=== PATIENT | female | born 1985 | race Caucasian/White ===

== ENCOUNTER 2017-01-01 21:19 | Emergency (ER) | payer OTHER ==
[~2017-01-01] VITALS: Ht 165.1 cm; Wt 107.0 kg
[~2017-01-01 21:19] MED LIST: BACTRIM,SEPT1 TABLET PO; BENTYL10 MG PO; CLINDAMYCIN HC300 MG PO; CLONAZEPAM0.5 MG PO; CYMBALTA60 MG PO; DEXILANT60 MG PO; ESOMEPRAZOLE MA40 MG PO; EXTRA STRENGTH500 M1 PO; FLEXERIL10 MG PO; FLONASE16 G1 BOTH NARES; INDERAL40 MG PO; IRON55 MG PO; KLONOPIN0.5 M1 PO; METAXALONE800 MG PO; MICROGESTIN FE1 EACH PO; MUCINEX1200 MG PO; MUCUS ER600 MG PO; NAPROSYN-EC500 MG PO; NAPROSYN500 MG PO; OVCON-351 TAB PO; PERCOCET 5/31 TABLET PO; PREDNISONE50 MG PO; PRILOSEC40 MG PO; PROBIOTIC1 EAC1 PO; PROPRANOLOL HCL40 MG PO; REGLAN10 MG PO; VALIUM2 MG PO; VALIUM5 MG PO; ZOFRAN ODT4 MG PO; ZOFRAN ODT8 MG PO; ZOLOFT50 MG PO
[2017-01-01 22:58] LABS: HEMATOCRIT 40.1 % (36.0-46.0); MCH 29.6 PG (29.0-34.0); MCHC 33.2 G/DL (30.0-36.0); MCV 89.1 FL (83-99); MEAN PLAT.VOLUME 9.3 uM^3 (9.5-12.4); PLATELET COUNT 293 K/uL (156-360); RBC DIS.WIDTH-CV 12.7 % (11.8-14.6); RBC DIS.WIDTH-SD 41.7 % (39-53); WHITE BLOOD COUNT 7.9 K/uL (4.1-10.2)
[2017-01-01 23:09] LABS: CHLORIDE 106 mEq/L (99-109); SODIUM 139 mEq/L (136-147)
[2017-01-01 23:11] LABS: GLUCOSE 142 mg/dL (70-99)
[2017-01-01 23:13] LABS: ANION GAP 12 MEQ/L (2-14)
[2017-01-01 23:15] LABS: GFR ESTIMATE (CALCULATED) > 59 mL/min/
[2017-01-01 23:16] LABS: UREA NITROGEN (BUN) 10 mg/dL (9-23)
[2017-01-01 23:23] LABS: QUANTITATIVE HCG < 4.0 MIU/ML
[2017-01-02 01:41] VITALS: BP 139/94
== END 2017-01-02 01:42 | disposition home or self-care (01) ==
LOC: EME 21:19
PROVIDERS: Emergency Medicine
DX: R20.2 Paresthesia of skin (principal); F41.9 Anxiety disorder, unspecified; Z88.1 Allergy status to other antibiotic agents
CPT/HCPCS: 70450; 80048; 84702; 85027; 99281; 99284

== ENCOUNTER 2017-01-30 14:19 | Emergency (ER) | payer OTHER ==
[~2017-01-30] VITALS: Ht 165.1 cm; Wt 105.6 kg
[2017-01-30 16:11] VITALS: BP 132/75
== END 2017-01-30 16:11 | disposition home or self-care (01) ==
LOC: EME 14:19
DX: G43.909 Migraine, unspecified, not intractable, without status migrainosus (principal); Z88.0 Allergy status to penicillin; Z88.8 Allergy status to other drugs, medicaments and biological substances; Z86.69 Personal history of other diseases of the nervous system and sense organs; Z86.79 Personal history of other diseases of the circulatory system
CPT/HCPCS: 99281; 99284; J1200; J1885; J2765; J7030

== ENCOUNTER 2017-01-31 11:41 | Emergency (ER) | payer OTHER ==
[~2017-01-31] VITALS: Ht 165.1 cm; Wt 114.4 kg
[2017-01-31 12:59] LABS: HEMATOCRIT 39.3 % (36.0-46.0); MCH 29.3 PG (29.0-34.0); MCHC 33.1 G/DL (30.0-36.0); MCV 88.7 FL (83-99); MEAN PLAT.VOLUME 9.3 uM^3 (9.5-12.4); PLATELET COUNT 268 K/uL (156-360); RBC DIS.WIDTH-CV 12.7 % (11.8-14.6); RBC DIS.WIDTH-SD 41.4 % (39-53); RED BLOOD COUNT 4.43 M/uL (3.80-5.20); WHITE BLOOD COUNT 4.5 K/uL (4.1-10.2)
[2017-01-31 13:07] LABS: D-DIMER ELISA 0.36 mg/L FEU (< 0.57)
[2017-01-31 13:18] LABS: CHLORIDE 109 mEq/L (99-109); POTASSIUM 3.7 mEq/L (3.7-5.4); SODIUM 143 mEq/L (136-147)
[2017-01-31 13:19] LABS: GLUCOSE 123 mg/dL (70-99)
[2017-01-31 13:21] LABS: ANION GAP 11 MEQ/L (2-14)
[2017-01-31 13:23] LABS: GFR ESTIMATE (CALCULATED) > 59 mL/min/
[2017-01-31 13:24] LABS: UREA NITROGEN (BUN) 6 mg/dL (9-23)
[2017-01-31 13:25] LABS: TROP-I INTERPRETATION NEGATIVE; TROPONIN-I < 0.01 ng/mL (0.0-0.30)
[2017-01-31 13:35] LABS: QUANTITATIVE HCG < 4.0 MIU/ML
[2017-01-31 14:22] VITALS: BP 131/96
== END 2017-01-31 14:48 | disposition home or self-care (01) ==
LOC: EME 11:41
PROVIDERS: Emergency Medicine
DX: R00.2 Palpitations (principal)
CPT/HCPCS: 71020; 80048; 83880; 84443; 84484; 84702; 85027; 85379; 93005; 99281; 99284; J2060

== ENCOUNTER 2017-03-27 17:03 | Emergency (ER) | payer OTHER ==
[~2017-03-27] VITALS: Ht 165.1 cm; Wt 112.0 kg
[2017-03-27 18:33] LABS: HEMATOCRIT 40.7 % (36.0-46.0); MCH 29.6 PG (29.0-34.0); MCHC 33.7 G/DL (30.0-36.0); MCV 87.9 FL (83-99); MEAN PLAT.VOLUME 9.2 uM^3 (9.5-12.4); PLATELET COUNT 306 K/uL (156-360); RBC DIS.WIDTH-CV 12.3 % (11.8-14.6); RBC DIS.WIDTH-SD 39.8 % (39-53); RED BLOOD COUNT 4.63 M/uL (3.80-5.20); WHITE BLOOD COUNT 7.8 K/uL (4.1-10.2)
[2017-03-27 18:43] LABS: D-DIMER ELISA < 150.00 ng/mLDDU (<230)
[2017-03-27 18:49] LABS: CHLORIDE 108 mEq/L (99-109); POTASSIUM 3.8 mEq/L (3.7-5.4); SODIUM 141 mEq/L (136-147)
[2017-03-27 18:51] LABS: GLUCOSE 91 mg/dL (70-99)
[2017-03-27 18:52] LABS: ANION GAP 10 MEQ/L (2-14)
[2017-03-27 18:54] LABS: TROP-I INTERPRETATION NEGATIVE; TROPONIN-I < 0.01 ng/mL (0.0-0.30)
[2017-03-27 18:55] LABS: GFR ESTIMATE (CALCULATED) > 59 mL/min/
[2017-03-27 18:56] LABS: UREA NITROGEN (BUN) 6 mg/dL (9-23)
[2017-03-27 18:57] LABS: CREATINE KINASE 93 IU/L (1-294)
[2017-03-27 19:05] LABS: QUANTITATIVE HCG < 4.0 MIU/ML
[2017-03-27 20:48] LABS: TROP-I INTERPRETATION NEGATIVE; TROPONIN-I < 0.01 ng/mL (0.0-0.30)
[2017-03-27] MEDS ORDERED: FLONASE16 G1 BOTH NARES (21:08)
[2017-03-27] MEDS ORDERED: MUCINEX1200 MG PO (21:08)
[2017-03-27] MEDS ORDERED: VALIUM2 MG PO (21:09)
[2017-03-27 21:27] VITALS: BP 111/72
== END 2017-03-27 21:27 | disposition home or self-care (01) ==
LOC: EME 17:03
PROVIDERS: Physician Assistant
DX: R07.89 Other chest pain (principal); R42 Dizziness and giddiness; H65.02 Acute serous otitis media, left ear
CPT/HCPCS: 71020; 80048; 82550; 84443; 84484; 84702; 85027; 85379; 93005; 99281; 99284

== ENCOUNTER 2017-04-09 22:20 | Emergency (ER) | payer OTHER ==
[~2017-04-09] VITALS: Ht 165.1 cm; Wt 106.3 kg
[2017-04-10 00:46] LABS: HEMATOCRIT 39.7 % (36.0-46.0); MCH 29.4 PG (29.0-34.0); MEAN PLAT.VOLUME 9.1 uM^3 (9.5-12.4); PLATELET COUNT 274 K/uL (156-360); RBC DIS.WIDTH-CV 12.7 % (11.8-14.6); RBC DIS.WIDTH-SD 41.3 % (39-53); RED BLOOD COUNT 4.46 M/uL (3.80-5.20); WHITE BLOOD COUNT 10.8 K/uL (4.1-10.2)
[2017-04-10 01:00] LABS: CHLORIDE 106 mEq/L (99-109); POTASSIUM 4.1 mEq/L (3.7-5.4); SODIUM 139 mEq/L (136-147)
[2017-04-10 01:01] LABS: MAGNESIUM 2.3 mg/dL (1.3-2.7)
[2017-04-10 01:02] LABS: GLUCOSE 112 mg/dL (70-99)
[2017-04-10 01:02] LABS: ADD MIUA? YES; BILIRUBIN NEGATIVE; BLOOD MODERATE; COLOR YELLOW ((YELLOW)); GLUCOSE (STRIP) NEGATIVE; KETONES NEGATIVE; LEUKOCYTES SMALL; NITRITE NEGATIVE; PROTEIN (STRIP) NEGATIVE; UROBILINOGEN 0.2 MG/DL (0.2-1.0)
[2017-04-10 01:03] LABS: ANION GAP 9 MEQ/L (2-14)
[2017-04-10 01:06] LABS: D-DIMER ELISA < 150.00 ng/mLDDU (<230); GFR ESTIMATE (CALCULATED) > 59 mL/min/
[2017-04-10 01:07] LABS: UREA NITROGEN (BUN) 7 mg/dL (9-23)
[2017-04-10 01:10] LABS: TROP-I INTERPRETATION NEGATIVE; TROPONIN-I < 0.01 ng/mL (0.0-0.30)
[2017-04-10 01:21] LABS: BACTERIA RARE /HPF; EPITHELIAL CELLS 1+ /HPF; MUCUS TRACE /LPF; RED BLOOD CELLS 0-5 /HPF (0-5); UCUL ADDED? NO; WHITE BLOOD CELLS 0-5 /HPF (0-5)
[2017-04-10 01:42] LABS: QUANTITATIVE HCG < 4.0 MIU/ML
[2017-04-10 02:45] VITALS: BP 136/80
== END 2017-04-10 02:46 | disposition home or self-care (01) ==
LOC: EME 22:20
PROVIDERS: Emergency Medicine
DX: R00.2 Palpitations (principal); F41.1 Generalized anxiety disorder; I47.1 Supraventricular tachycardia; I45.81 Long QT syndrome; Z88.0 Allergy status to penicillin; Z79.3 Long term (current) use of hormonal contraceptives
CPT/HCPCS: 71020; 80048; 81003; 83735; 84443; 84484; 84702; 85027; 85379; 93005; 99281; 99284

== ENCOUNTER 2017-04-15 09:22 | Emergency (ER) | payer OTHER ==
[~2017-04-15] VITALS: Ht 165.1 cm; Wt 102.9 kg
[2017-04-15 10:36] LABS: HEMATOCRIT 40.5 % (36.0-46.0); MCH 29.6 PG (29.0-34.0); MCHC 33.6 G/DL (30.0-36.0); MEAN PLAT.VOLUME 9.3 uM^3 (9.5-12.4); PLATELET COUNT 311 K/uL (156-360); RBC DIS.WIDTH-CV 12.5 % (11.8-14.6); RBC DIS.WIDTH-SD 40.2 % (39-53); WHITE BLOOD COUNT 7.1 K/uL (4.1-10.2)
[2017-04-15 10:45] LABS: CHLORIDE 106 mEq/L (99-109); POTASSIUM 4.1 mEq/L (3.7-5.4); SODIUM 140 mEq/L (136-147)
[2017-04-15 10:46] LABS: GLUCOSE 100 mg/dL (70-99)
[2017-04-15 10:48] LABS: ANION GAP 14 MEQ/L (2-14)
[2017-04-15 10:50] LABS: GFR ESTIMATE (CALCULATED) > 59 mL/min/
[2017-04-15 10:51] LABS: UREA NITROGEN (BUN) 6 mg/dL (9-23)
[2017-04-15 10:57] LABS: TROP-I INTERPRETATION NEGATIVE; TROPONIN-I < 0.01 ng/mL (0.0-0.30)
[2017-04-15 11:54] VITALS: BP 120/80
== END 2017-04-15 11:55 | disposition home or self-care (01) ==
LOC: EME 09:22
DX: R07.9 Chest pain, unspecified (principal); F41.9 Anxiety disorder, unspecified; R94.31 Abnormal electrocardiogram [ECG] [EKG]
CPT/HCPCS: 71020; 80048; 84484; 85027; 93005; 99281; 99285

== ENCOUNTER 2017-06-18 18:17 | Emergency (ER) | payer OTHER ==
[~2017-06-18] VITALS: Ht 165.1 cm; Wt 100.8 kg
[2017-06-18 19:37] LABS: HEMATOCRIT 42.2 % (36.0-46.0); MCH 29.3 PG (29.0-34.0); MCHC 33.2 G/DL (30.0-36.0); MCV 88.3 FL (83-99); MEAN PLAT.VOLUME 9.6 uM^3 (9.5-12.4); PLATELET COUNT 298 K/uL (156-360); RBC DIS.WIDTH-CV 12.1 % (11.8-14.6); RBC DIS.WIDTH-SD 39.6 % (39-53); RED BLOOD COUNT 4.78 M/uL (3.80-5.20); WHITE BLOOD COUNT 6.8 K/uL (4.1-10.2)
[2017-06-18 19:46] LABS: CHLORIDE 106 mEq/L (99-109); SODIUM 139 mEq/L (136-147)
[2017-06-18 19:48] LABS: GLUCOSE 94 mg/dL (70-99)
[2017-06-18 19:49] LABS: ANION GAP 8 MEQ/L (2-14)
[2017-06-18 19:50] LABS: TOTAL BILIRUBIN 0.3 mg/dL (0.0-1.0)
[2017-06-18 19:51] LABS: ALKALINE PHOSPHATASE 48 IU/L (3-129)
[2017-06-18 19:52] LABS: GFR ESTIMATE (CALCULATED) > 59 mL/min/
[2017-06-18 19:53] LABS: UREA NITROGEN (BUN) 8 mg/dL (9-23)
[2017-06-18 21:09] VITALS: BP 132/93
== END 2017-06-18 21:10 | disposition home or self-care (01) ==
LOC: EME 18:17
PROVIDERS: Physician Assistant
DX: R42 Dizziness and giddiness (principal); F41.9 Anxiety disorder, unspecified; R56.9 Unspecified convulsions; D64.9 Anemia, unspecified; F17.200 Nicotine dependence, unspecified, uncomplicated; Z88.1 Allergy status to other antibiotic agents; Z88.8 Allergy status to other drugs, medicaments and biological substances
CPT/HCPCS: 80053; 85027; 93005; 99281; 99284

== ENCOUNTER 2017-07-08 11:34 | Emergency (ER) | payer OTHER ==
[~2017-07-08] VITALS: Ht 165.1 cm; Wt 102.1 kg
[2017-07-08 12:22] LABS: MCH 29.5 PG (29.0-34.0); MCHC 33.5 G/DL (30.0-36.0); MCV 87.9 FL (83-99); MEAN PLAT.VOLUME 9.3 uM^3 (9.5-12.4); PLATELET COUNT 294 K/uL (156-360); RBC DIS.WIDTH-CV 12.2 % (11.8-14.6); RBC DIS.WIDTH-SD 39.3 % (39-53); RED BLOOD COUNT 4.55 M/uL (3.80-5.20); WHITE BLOOD COUNT 7.6 K/uL (4.1-10.2)
[2017-07-08 12:40] LABS: CHLORIDE 107 mEq/L (99-109); POTASSIUM 3.9 mEq/L (3.7-5.4); SODIUM 140 mEq/L (136-147)
[2017-07-08 12:41] LABS: GLUCOSE 137 mg/dL (70-99)
[2017-07-08 12:43] LABS: ANION GAP 10 MEQ/L (2-14)
[2017-07-08 12:45] LABS: GFR ESTIMATE (CALCULATED) > 59 mL/min/
[2017-07-08 12:46] LABS: UREA NITROGEN (BUN) 7 mg/dL (9-23)
[2017-07-08 14:47] VITALS: BP 114/85
== END 2017-07-08 14:52 | disposition home or self-care (01) ==
LOC: EME 11:34
DX: R00.2 Palpitations (principal); I45.81 Long QT syndrome; I47.1 Supraventricular tachycardia; F41.0 Panic disorder [episodic paroxysmal anxiety]; R56.9 Unspecified convulsions; Z88.1 Allergy status to other antibiotic agents; Z88.8 Allergy status to other drugs, medicaments and biological substances; Z87.891 Personal history of nicotine dependence
CPT/HCPCS: 80048; 81003; 85027; 93005; 99281; 99284

== ENCOUNTER 2017-08-14 08:12 | Emergency (ER) | payer OTHER ==
[~2017-08-14] VITALS: Ht 165.1 cm; Wt 101.5 kg
[2017-08-14 08:25] VITALS: BP 117/93
== END 2017-08-14 10:40 | disposition left against medical advice (07) ==
LOC: EME 08:12
DX: R42 Dizziness and giddiness (principal); R00.2 Palpitations; Z53.21 Procedure and treatment not carried out due to patient leaving prior to being seen by health care provider

== ENCOUNTER 2017-09-02 11:14 | Emergency (ER) | payer OTHER ==
[~2017-09-02] VITALS: Ht 162.6 cm; Wt 100.8 kg
[2017-09-02 11:44] VITALS: BP 120/92
== END 2017-09-02 13:35 | disposition left against medical advice (07) ==
LOC: EME 11:14
DX: R00.2 Palpitations (principal); Z53.21 Procedure and treatment not carried out due to patient leaving prior to being seen by health care provider
CPT/HCPCS: 80048; 83735; 84484; 85027; 93005

== ENCOUNTER 2017-09-29 11:11 | Emergency (ER) | payer OTHER ==
[~2017-09-29] VITALS: Ht 165.1 cm; Wt 100.0 kg
[2017-09-29 12:06] LABS: HEMATOCRIT 42.2 % (36.0-46.0); HEMOGLOBIN 14.2 G/DL (11.9-15.5); MCH 29.4 PG (29.0-34.0); MCHC 33.6 G/DL (30.0-36.0); MCV 87.4 FL (83-99); PLATELET COUNT 300 K/uL (156-360); RBC DIS.WIDTH-CV 12.6 % (11.8-14.6); RBC DIS.WIDTH-SD 40.1 % (39-53); RED BLOOD COUNT 4.83 M/uL (3.80-5.20); WHITE BLOOD COUNT 8.5 K/uL (4.1-10.2)
[2017-09-29 12:15] LABS: ALBUMIN 4.2 g/dL (3.2-4.8)
[2017-09-29 12:16] LABS: CHLORIDE 106 mEq/L (99-109); POTASSIUM 4.1 mEq/L (3.7-5.4); SODIUM 139 mEq/L (136-147)
[2017-09-29 12:18] LABS: GLUCOSE 117 mg/dL (70-99); TOTAL PROTEIN 8.2 g/dL (6.4-8.3)
[2017-09-29 12:20] LABS: TOTAL BILIRUBIN 0.4 mg/dL (0.0-1.0)
[2017-09-29 12:21] LABS: ALKALINE PHOSPHATASE 45 IU/L (3-129)
[2017-09-29 12:22] LABS: CREATININE 0.8 mg/dL (0.6-1.3); GFR ESTIMATE (CALCULATED) > 59 mL/min/
[2017-09-29 12:23] LABS: AST (GOT) 16 IU/L (2-34); UREA NITROGEN (BUN) 7 mg/dL (9-23)
[2017-09-29 12:25] LABS: ALT (GPT) 19 IU/L (3-49)
[2017-09-29 12:33] LABS: QUANTITATIVE HCG < 4.0 MIU/ML
[2017-09-29 14:05] LABS: TROP-I INTERPRETATION NEGATIVE; TROPONIN-I < 0.01 ng/mL (0.0-0.30)
[2017-09-29] MEDS ORDERED: MECLIZINE HCL25 MG PO (15:49)
[2017-09-29 16:02] VITALS: BP 144/86
== END 2017-09-29 16:02 | disposition home or self-care (01) ==
LOC: EME 11:11
DX: R51 Headache (principal); R42 Dizziness and giddiness; R94.31 Abnormal electrocardiogram [ECG] [EKG]; D17.22 Benign lipomatous neoplasm of skin and subcutaneous tissue of left arm; F41.0 Panic disorder [episodic paroxysmal anxiety]; Z87.891 Personal history of nicotine dependence; Z88.6 Allergy status to analgesic agent; Z88.0 Allergy status to penicillin; Z88.8 Allergy status to other drugs, medicaments and biological substances
CPT/HCPCS: 70450; 80053; 84484; 84702; 85027; 93005; 99281; 99284; J1885

== ENCOUNTER 2017-11-01 20:02 | Emergency (ER) | payer OTHER ==
[~2017-11-01] VITALS: Ht 165.1 cm; Wt 103.1 kg
[~2017-11-01 20:02] MED LIST changes: +MECLIZINE HCL25 MG PO
[2017-11-01 21:18] LABS: HEMATOCRIT 38.4 % (36.0-46.0); HEMOGLOBIN 12.9 G/DL (11.9-15.5); MCH 29.8 PG (29.0-34.0); MCHC 33.6 G/DL (30.0-36.0); MCV 88.7 FL (83-99); PLATELET COUNT 256 K/uL (156-360); RBC DIS.WIDTH-CV 12.9 % (11.8-14.6); RBC DIS.WIDTH-SD 41.7 % (39-53); RED BLOOD COUNT 4.33 M/uL (3.80-5.20); WHITE BLOOD COUNT 7.4 K/uL (4.1-10.2)
[2017-11-01 21:27] LABS: CHLORIDE 107 mEq/L (99-109); POTASSIUM 4.4 mEq/L (3.7-5.4); SODIUM 139 mEq/L (136-147)
[2017-11-01 21:29] LABS: GLUCOSE 114 mg/dL (70-99)
[2017-11-01 21:33] LABS: CREATININE 0.7 mg/dL (0.6-1.3); GFR ESTIMATE (CALCULATED) > 59 mL/min/
[2017-11-01 21:34] LABS: UREA NITROGEN (BUN) 8 mg/dL (9-23)
[2017-11-01 21:41] LABS: TROP-I INTERPRETATION NEGATIVE; TROPONIN-I < 0.01 ng/mL (0.0-0.30)
[2017-11-01 21:42] LABS: QUANTITATIVE HCG < 4.0 MIU/ML
[2017-11-01 22:06] VITALS: BP 120/74
== END 2017-11-01 22:09 | disposition home or self-care (01) ==
LOC: EME 20:02
PROVIDERS: Physician Assistant
DX: R07.9 Chest pain, unspecified (principal); R56.9 Unspecified convulsions; D64.9 Anemia, unspecified; F41.9 Anxiety disorder, unspecified; F41.0 Panic disorder [episodic paroxysmal anxiety]; I47.1 Supraventricular tachycardia; Z88.8 Allergy status to other drugs, medicaments and biological substances; Z88.0 Allergy status to penicillin; Z88.6 Allergy status to analgesic agent; Z87.891 Personal history of nicotine dependence
CPT/HCPCS: 71046; 80048; 84484; 84702; 85027; 93005; 99281; 99284

== ENCOUNTER 2017-11-12 17:24 | Emergency (ER) | payer OTHER ==
[~2017-11-12] VITALS: Ht 165.1 cm; Wt 103.5 kg
[2017-11-12 20:04] LABS: HEMATOCRIT 40.7 % (36.0-46.0); HEMOGLOBIN 13.7 G/DL (11.9-15.5); MCH 30.1 PG (29.0-34.0); MCHC 33.7 G/DL (30.0-36.0); MCV 89.5 FL (83-99); PLATELET COUNT 303 K/uL (156-360); RBC DIS.WIDTH-SD 42.6 % (39-53); RED BLOOD COUNT 4.55 M/uL (3.80-5.20); WHITE BLOOD COUNT 10.4 K/uL (4.1-10.2)
[2017-11-12 20:11] LABS: ALBUMIN 4.3 g/dL (3.2-4.8); CHLORIDE 105 mEq/L (99-109); POTASSIUM 4.2 mEq/L (3.7-5.4); SODIUM 140 mEq/L (136-147)
[2017-11-12 20:13] LABS: GLUCOSE 107 mg/dL (70-99); TOTAL PROTEIN 8.1 g/dL (6.4-8.3)
[2017-11-12 20:15] LABS: TOTAL BILIRUBIN 0.4 mg/dL (0.0-1.0)
[2017-11-12 20:17] LABS: ALKALINE PHOSPHATASE 56 IU/L (3-129); CREATININE 0.8 mg/dL (0.6-1.3); GFR ESTIMATE (CALCULATED) > 59 mL/min/
[2017-11-12 20:18] LABS: UREA NITROGEN (BUN) 8 mg/dL (9-23)
[2017-11-12 20:19] LABS: AST (GOT) 15 IU/L (2-34)
[2017-11-12 20:20] LABS: ALT (GPT) 17 IU/L (3-49); TROP-I INTERPRETATION NEGATIVE; TROPONIN-I < 0.01 ng/mL (0.0-0.30)
[2017-11-12 21:46] VITALS: BP 146/91
== END 2017-11-12 21:47 | disposition home or self-care (01) ==
LOC: EME 17:24
PROVIDERS: Nurse Practitioner Family
DX: R42 Dizziness and giddiness (principal); F41.9 Anxiety disorder, unspecified; Z87.891 Personal history of nicotine dependence; Z88.6 Allergy status to analgesic agent; Z88.0 Allergy status to penicillin; Z88.8 Allergy status to other drugs, medicaments and biological substances
CPT/HCPCS: 71046; 80053; 84484; 85027; 93005; 99281; 99283

== ENCOUNTER 2017-12-31 17:35 | Emergency (ER) | payer OTHER ==
[~2017-12-31] VITALS: Ht 165.1 cm; Wt 102.9 kg
[2017-12-31 18:15] LABS: HEMATOCRIT 42.5 % (36.0-46.0); HEMOGLOBIN 14.5 G/DL (11.9-15.5); MCH 30.7 PG (29.0-34.0); MCHC 34.1 G/DL (30.0-36.0); MCV 89.9 FL (83-99); PLATELET COUNT 299 K/uL (156-360); RBC DIS.WIDTH-CV 12.6 % (11.8-14.6); RBC DIS.WIDTH-SD 41.4 % (39-53); RED BLOOD COUNT 4.73 M/uL (3.80-5.20); WHITE BLOOD COUNT 6.5 K/uL (4.1-10.2)
[2017-12-31 18:26] LABS: CHLORIDE 104 mEq/L (99-109); POTASSIUM 4.5 mEq/L (3.7-5.4); SODIUM 140 mEq/L (136-147)
[2017-12-31 18:28] LABS: GLUCOSE 100 mg/dL (70-99)
[2017-12-31 18:32] LABS: CREATININE 0.8 mg/dL (0.6-1.3); GFR ESTIMATE (CALCULATED) > 59 mL/min/; UREA NITROGEN (BUN) 9 mg/dL (9-23)
[2017-12-31 18:36] LABS: TROP-I INTERPRETATION NEGATIVE; TROPONIN-I < 0.01 ng/mL (0.0-0.30)
[2017-12-31 21:45] LABS: TROP-I INTERPRETATION NEGATIVE; TROPONIN-I < 0.01 ng/mL (0.0-0.30)
[2017-12-31 22:15] VITALS: BP 121/77
== END 2017-12-31 22:15 | disposition home or self-care (01) ==
LOC: EME 17:35
PROVIDERS: Nurse Practitioner Family
DX: R07.9 Chest pain, unspecified (principal); F41.0 Panic disorder [episodic paroxysmal anxiety]; R94.31 Abnormal electrocardiogram [ECG] [EKG]; Z79.3 Long term (current) use of hormonal contraceptives; Z87.891 Personal history of nicotine dependence; Z86.79 Personal history of other diseases of the circulatory system; Z86.018 Personal history of other benign neoplasm; Z88.0 Allergy status to penicillin; Z88.6 Allergy status to analgesic agent; Z88.8 Allergy status to other drugs, medicaments and biological substances
CPT/HCPCS: 71046; 80048; 84484; 85027; 93005; 99281; 99285